=== PATIENT | female | born 1995 ===

== ENCOUNTER 2020-10-20 05:52 | Day surgery (SDC) | payer OTHER ==
[~2020-10-20 05:52] MED LIST: PROTONIX PO
[2020-10-20] MEDS ORDERED: NAPR500T14 PO (08:42)
[2020-10-20] MEDS ORDERED: MORGIDOX100 MG PO (08:49)
== END 2020-10-20 12:15 | disposition home or self-care (01) ==
LOC: CIR.AMB 05:52
PROVIDERS: ATTEND Obstetrics & Gynecology
DX: D25.0 Submucous leiomyoma of uterus (principal); N84.0 Polyp of corpus uteri; Z20.822 Contact with and (suspected) exposure to COVID-19

== ENCOUNTER 2024-03-26 05:33 | Day surgery (SDC) | payer OTHER ==
[~2024-03-26 05:33] MED LIST changes: +MORGIDOX100 MG PO; +NAPR500T14 PO
[2024-03-26] MEDS ORDERED: CEFOXITIN SODIUM 2,000 MG VIAL IV SCH (11:45)
[2024-03-26] MEDS ORDERED: POVIDONE-IODINE 118 ML BOTT TOP ONE (11:45)
[2024-03-26] MEDS ORDERED: NAPR500T14 PO (12:09)
[2024-03-26] MEDS ORDERED: MORGIDOX100 MG PO (12:09)
[2024-03-26] MEDS ORDERED: PROMETHAZINE HCL 50 MG/ML AMPUL IM ONE (12:15)
[2024-03-26] MEDS ORDERED: MORPHINE SULFATE 4 MG/ML VIAL IV PRN (12:15)
== END 2024-03-26 14:55 | disposition home or self-care (01) ==
LOC: CIR.AMB 05:33
PROVIDERS: ATTEND Obstetrics & Gynecology
DX: D25.0 Submucous leiomyoma of uterus (principal); N84.0 Polyp of corpus uteri; N92.5 Other specified irregular menstruation; I95.9 Hypotension, unspecified; K21.9 Gastro-esophageal reflux disease without esophagitis